=== PATIENT | female | born 1985 | race Caucasian/White ===

== ENCOUNTER 2017-11-16 05:39 | Inpatient (IN) | payer BC ==
[~2017-11-16] VITALS: Ht 162.6 cm; Wt 70.0 kg
[2017-11-16] VITALS (21 sets, daily range): BP systolic 87–115; BP diastolic 51–76; PULSE 61–114; TEMP 97.7–98.6
[~2017-11-16 05:39] MED LIST: MOTRIN 800800 MG/TAB PO; PERCOCET 325 MG1 TA2 PO; PRENATAL MVI; PRIL40 PO; SENOKOT S 50 MG1 TAB PO; TUMS500 MG
[2017-11-16 06:34] LABS: HEMOGLOBIN 12.1 g/dl (12.5-16.0); MEAN CELL VOLUME 87 fl (80.0-100.0); MEAN CORPUSCULAR HEMOGLOBIN 28 pg (27.0-31.0); MEAN CORPUSCULAR HGB CONC 33 g/dl (33.0-37.0); MEAN PLATELET VOLUME 10.4 fl (7.4-10.4); PLATELET COUNT 186 K/mm3 (130-400); RED BLOOD COUNT 4.26 M/mm3 (4.10-5.30); REDCELL DISTRIBUTION WIDTH-CV 15.2 % (11.5-14.5)
[2017-11-16 06:44] LABS: HEMATOCRIT 36.9 % (37.0-47.0)
[2017-11-16 07:29] LABS: BAND 5 % (0-10); EOSINOPHIL 1 % (0-4); LYMPHOCYTE 35 % (20.0-51.0); NEUTROPHILS 55 % (42.0-75.2); PLATELET ESTIMATE NORMAL (NORMAL)
[2017-11-17 05:41] VITALS: BP 81/54; PULSE 73; TEMP 98.1
[2017-11-17] MEDS ORDERED: PERCOCET 325 MG1 TA2 PO (07:20)
[2017-11-17] MEDS ORDERED: MOTRIN 800800 MG/TAB PO (07:20)
[2017-11-17 08:30] VITALS: BP 91/55; PULSE 73; TEMP 97.5
[2017-11-17 20:05] VITALS: BP 91/60; PULSE 70; TEMP 97.9
[2017-11-18 09:48] VITALS: BP 92/55; PULSE 65
== END 2017-11-18 18:05 | disposition home or self-care (01) | DRG 766 ==
LOC: OB 05:39 → LDR 09:43 → OB 11-18 18:05
PROVIDERS: Obstetrics & Gynecology
PROC: 10D00Z1 Extraction of Products of Conception, Low, Open Approach (ICD-10-PCS; principal; 2017-11-16)
DX: O34.211 Maternal care for low transverse scar from previous cesarean delivery (principal); Z3A.39 39 weeks gestation of pregnancy; Z37.0 Single live birth
CPT/HCPCS: J0690; J1885; J2270; J2370; J2405; J2590; J7120